=== PATIENT | male | born 1940 | race Caucasian/White ===

== ENCOUNTER 2018-04-06 10:31 | Inpatient (IN) ==
[2018-04-06] MEDS ORDERED: SODIUM CHLORIDE 0.9% 1,000 ML IV STA (10:56)
[2018-04-06 11:06] LABS: Basophils % 0.1 % (0.0-0.8); Hematocrit 40.4 VOL% (42.0-52.0); Hemoglobin 13.5 GM/DL (14.0-18.0); Immature Granulocytes % 0.4 %; Immature Granulocytes Absolute 0.03 #; Mean Corpuscular HGB Conc 33.4 GM/DL (32-36); Mean Corpuscular Hemoglobin 32 PG (27-34); Mean Corpuscular Volume 96.4 FL (87-102); Mean Platelet Volume 9.2 FL (9.6-12.0); Monocytes # 0.6 10*3/uL (0.11-0.8); Monocytes % 7.7 % (1.7-12.7); Neutrophils # 6.5 10*3/uL (1.4-7.4); Neutrophils % 79.8 % (38.7-73.9); Platelet Count 109 T/CUMM (130-400); Red Blood Count 4.19 MC/CUMM (3.8-5.5); White Blood Count 8.2 T/CUMM (4-12)
[2018-04-06 11:11] LABS: PT Patient Result 10.4 SECS; Partial Thromboplastin Time 28.2 SECS (0-40)
[2018-04-06] MEDS ORDERED: DILTIAZEM 50 MG/10 ML VIAL IV STA (11:40)
[2018-04-06 11:49] LABS: Albumin 2.9 G/DL (3.4-5.0); Calcium 8.1 MG/DL (8.5-10.1); Osmolality,Calculated 281.5 MOS/KG (273-304); Potassium 3.6 MMOL/L (3.5-5.1); Thyroid Stimulating Hormone 0.333 uIU/ml (0.358-3.74); Total Protein 6.1 G/DL (6.4-8.3)
[2018-04-06] MEDS: dilTIAZem Drip 125 MG/125 ML PREMIX IV SCH (11:56)
[2018-04-06] MEDS: SODIUM CHLORIDE 0.9% 1,000 ML IV SCH (14:30)
[2018-04-06] MEDS ORDERED: ONDANSETRON 4 MG/2 ML VIAL IV PRN (14:33)
[2018-04-06] MEDS ORDERED: MAGNESIUM SULF RIDER 2 GM in PREMIX 1 EACH IV PRN (14:33)
[2018-04-06] MEDS ORDERED: MAGNESIUM SULF RIDER 4 GM in PREMIX 1 EACH IV PRN (14:33)
[2018-04-06] MEDS ORDERED: SODIUM CHLORIDE 0.9% 1,000 ML IV SCH ×2 (15:00→15:30)
[2018-04-06] MEDS: ENOXAPARIN 40 MG/0.4 ML SYRINGE SUBCUT SCH (17:59)
[2018-04-06] MEDS ORDERED: RIVAROXABAN 10 MG TABLET PO SCH (21:00)
[2018-04-06] MEDS: DILTIAZEM 60 MG TABLET PO SCH (21:03)
[2018-04-06] MEDS: METOPROLOL TARTRATE 50 MG TABLET PO SCH (21:03)
[2018-04-07] MEDS: SODIUM CHLORIDE 0.9% 1,000 ML IV SCH ×3 (01:39→17:01)
[2018-04-07 05:28] LABS: Basophils % 0.1 % (0.0-0.8); Eosinophils % 0.1 % (0.00-10.9); Hemoglobin 14.3 GM/DL (14.0-18.0); Immature Granulocytes % 0.3 %; Immature Granulocytes Absolute 0.02 #; Lymphocytes # 1.3 10*3/uL (1.4-4.0); Lymphocytes % 18.3 % (21.2-54.2); Mean Corpuscular HGB Conc 33.3 GM/DL (32-36); Mean Corpuscular Hemoglobin 32 PG (27-34); Mean Corpuscular Volume 96.6 FL (87-102); Mean Platelet Volume 9.7 FL (9.6-12.0); Monocytes # 0.5 10*3/uL (0.11-0.8); Monocytes % 7.5 % (1.7-12.7); Neutrophils % 73.7 % (38.7-73.9); Platelet Count 106 T/CUMM (130-400); Red Blood Count 4.45 MC/CUMM (3.8-5.5); White Blood Count 6.8 T/CUMM (4-12)
[2018-04-07 05:47] LABS: Calcium 8.6 MG/DL (8.5-10.1); Osmolality,Calculated 280.5 MOS/KG (273-304); Potassium 3.9 MMOL/L (3.5-5.1)
[2018-04-07 05:59] LABS: Platelet Estimate Decreased
[2018-04-07] MEDS: DILTIAZEM 60 MG TABLET PO SCH ×2 (08:57→21:07)
[2018-04-07] MEDS: METOPROLOL TARTRATE 50 MG TABLET PO SCH ×2 (08:57→21:07)
[2018-04-07] MEDS: PANTOPRAZOLE 40 MG VIAL IV SCH (08:57)
[2018-04-07] MEDS: cefTRIAXone 1,000 MG in SYRINGE 1 EACH IV SCH (11:55)
[2018-04-07] MEDS: LOPERAMIDE 2 MG CAPSULE PO PRN ×2 (11:57→21:10)
[2018-04-07 12:01] LABS: Apearance,Urine Slightly Hazy (Clear); Bilirubin,Urine Negative (Negative); Blood, Urine Moderate mg/dL (Negative); Glucose,Urine (UA) Negative (Negative); Granular Casts,Urine 1 /LPF (0-1); Ketones,Urine 5 mg/dL (Negative); Mucus,Urine Occasional /LPF (Occasional); Nitrite,Urine Negative (Negative); Protein,Urine 30 MG/DL; RBC,Urine 2 /HPF (0-4); Squamous Epithelial Cell,Urine Occasional /HPF (0-10); Urine Color Yellow (Yellow); Urine Specific Gravity 1.017 (1.001-1.035); Urine Urobilinogen < 2.0 EU/DL (0.2-1.0); WBC,Urine 3 /HPF (0-6)
[2018-04-07] MEDS: dilTIAZem Drip 125 MG/125 ML PREMIX IV SCH (13:06)
[2018-04-07] MEDS: ACETAMINOPHEN 325 MG TABLET PO PRN (13:06)
[2018-04-07] MEDS: metroNIDAZOLE 500 MG TABLET PO SCH ×2 (16:16→21:07)
[2018-04-07] MEDS: ENOXAPARIN 40 MG/0.4 ML SYRINGE SUBCUT SCH (19:00)
[2018-04-08] MEDS: ACETAMINOPHEN 325 MG TABLET PO PRN (00:04)
[2018-04-08 05:06] LABS: Basophils % 0.4 % (0.0-0.8); Eosinophils % 0.6 % (0.00-10.9); Hematocrit 34.1 VOL% (42.0-52.0); Hemoglobin 11.3 GM/DL (14.0-18.0); Immature Granulocytes % 0.6 %; Immature Granulocytes Absolute 0.03 #; Lymphocytes # 1.1 10*3/uL (1.4-4.0); Lymphocytes % 20.6 % (21.2-54.2); Mean Corpuscular HGB Conc 33.1 GM/DL (32-36); Mean Corpuscular Hemoglobin 31 PG (27-34); Mean Corpuscular Volume 94.7 FL (87-102); Mean Platelet Volume 10.2 FL (9.6-12.0); Monocytes # 0.8 10*3/uL (0.11-0.8); Monocytes % 14.4 % (1.7-12.7); Neutrophils # 3.3 10*3/uL (1.4-7.4); Neutrophils % 63.4 % (38.7-73.9); Platelet Count 96 T/CUMM (130-400); Red Cell Distribution Width 13.7 % (9.3-17.3); White Blood Count 5.2 T/CUMM (4-12)
[2018-04-08 05:22] LABS: Calcium 7.6 MG/DL (8.5-10.1); Osmolality,Calculated 278.5 MOS/KG (273-304); Potassium 2.9 MMOL/L (3.5-5.1)
[2018-04-08 06:01] LABS: Band Neutrophils 16 % (0-10); Lymphocytes 15 % (20-55); Segmented Neutrophils 62 % (50-85)
[2018-04-08 06:02] LABS: Platelet Estimate Decreased; Total Cells Counted 100
[2018-04-08] MEDS ORDERED: POTASSIUM CHLORIDE 20 MEQ TABLET PO PRN (06:02)
[2018-04-08] MEDS: SODIUM CHLORIDE 0.9% 1,000 ML IV SCH ×2 (09:28→17:56)
[2018-04-08] MEDS: ASPIRIN EC 81 MG TABLET PO SCH (09:30)
[2018-04-08] MEDS: DILTIAZEM 60 MG TABLET PO SCH (09:30)
[2018-04-08] MEDS: POTASSIUM CHLORIDE 20 MEQ TABLET PO SCH ×2 (09:30→20:41)
[2018-04-08] MEDS: PANTOPRAZOLE 40 MG VIAL IV SCH (09:30)
[2018-04-08] MEDS: METOPROLOL TARTRATE 50 MG TABLET PO SCH ×2 (09:30→20:41)
[2018-04-08] MEDS: metroNIDAZOLE 500 MG TABLET PO SCH ×3 (09:30→20:40)
[2018-04-08] MEDS: cefTRIAXone 1,000 MG in SYRINGE 1 EACH IV SCH (10:53)
[2018-04-08] MEDS: ENOXAPARIN 40 MG/0.4 ML SYRINGE SUBCUT SCH (16:55)
[2018-04-08 22:25] LABS: Apearance,Urine CLEAR (Clear); Bilirubin,Urine Negative (Negative); Blood, Urine Small mg/dL (Negative); Glucose,Urine (UA) Negative (Negative); Granular Casts,Urine 3 /LPF (0-1); Hyaline Casts,Urine 7 /LPF (0-3); Ketones,Urine Negative (Negative); Mucus,Urine Occasional /LPF (Occasional); Nitrite,Urine Negative (Negative); Protein,Urine 30 MG/DL; RBC,Urine 28 /HPF (0-4); Squamous Epithelial Cell,Urine Occasional /HPF (0-10); Urine Color Yellow (Yellow); Urine Specific Gravity 1.015 (1.001-1.035); Urine Urobilinogen < 2.0 EU/DL (0.2-1.0); WBC,Urine 21 /HPF (0-6)
[2018-04-09] MEDS: METOPROLOL TARTRATE 50 MG TABLET PO SCH (09:31)
[2018-04-09] MEDS: metroNIDAZOLE 500 MG TABLET PO SCH (09:31)
[2018-04-09] MEDS: SODIUM CHLORIDE 0.9% 1,000 ML IV SCH (09:31)
[2018-04-09] MEDS: ASPIRIN EC 81 MG TABLET PO SCH (09:31)
[2018-04-09] MEDS: PANTOPRAZOLE 40 MG VIAL IV SCH (09:32)
[2018-04-09] MEDS: POTASSIUM CHLORIDE 20 MEQ TABLET PO SCH (09:32)
[2018-04-09] MEDS: cefTRIAXone 1,000 MG in SYRINGE 1 EACH IV SCH (09:32)
[2018-04-09 10:11] LABS: Calcium 8.1 MG/DL (8.5-10.1); Osmolality,Calculated 280.4 MOS/KG (273-304)
[2018-04-09] MEDS ORDERED: TAMSULOSIN 0.4 MG CAPSULE PO SCH (12:30)
[2018-04-09 15:48] VITALS: BP 164/74
[2018-04-09] MEDS: ENOXAPARIN 40 MG/0.4 ML SYRINGE SUBCUT SCH (16:17)
== END 2018-04-09 17:40 | disposition home or self-care (01) | DRG 372 ==
LOC: EDBD → EDUNIT# → N.ED 10:31 → SUATTDRO 14:35 → N.EDINP 14:35 → N.TELEN 16:58
PROVIDERS: ADMIT Emergency Medicine; ATTEND Internal Medicine Nephrology